=== PATIENT | male | born 1950 | race Caucasian/White ===

== ENCOUNTER 2025-06-21 08:33 | Outpatient (AMB) | payer OTHER, SELFPAY ==
--- NOTE | 2025-06-21 08:43 | A.OFFPC_ITS ---
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 Intake Note: patient here for new patient visit Dive Supervisor Required: No Allergies No Known Allergies Allergy (Verified 06/21/25 09:06) Tobacco use date assessed: 06/21/25 Fall risk assessment: No Falls in past year Last assessed Fall Risk: 06/21/25 Dental Screening Dental Screen Date: 06/21/25 Did you have a dental visit in the last 12 months?: Yes Did you have a dental problem in the last 6 months where you did not have access to dental care?: No Was dental information given to patient?: Patient has dentist HPI HPI Comments History of Present Illness Details 74-year-old male presents to establish c are. He admits to taking his medications as prescribed without adverse reactions. Reports lot of anxiety since he had a heart attack in 2019. He worries about a lot of things including in medical condition. He was on Lorazepam 0.5mg daily as needed for anxiety a few years ago. Prior PCP? - Dr. Paulo Griffith Last office visit/CPE/labs - 2 years ago Acute issue(s) - None Past Medical History - Hypertension, hyperlipidemia, low back pain, acid reflux, inverted papilloma/benign tumor of sinus cavity, myopia and hyperopia (wears glasses) anxiety, arthritis multiple joints Surgical History - Coronary artery stent 2018 - Surgical repair inverted papilloma/stephany ign tumor of sinus cavity Family History - Dad: HTN, cardiovascular disease Social History - Nonsmoker. Does not vape. Drinks 2 sma ll glasses of wine twice weekly. Denies recreational drug use - Has been making healthy dietary choice s. Walks routinely. Generally sleep well Health maintenance - Last eye exam was a year ago with Dr. Retana [facility]. He has an eye exam scheduled in 07/15/2025 - Last dental visit was 4 moths ago - Last Tdap 2 years ago. Record not mary ilable - He has never been vaccinated for shing les and pneumonia. Instructed on the importance of the vaccines and encouraged to get vaccinated for both a the local pharamcy - Has not been vaccinated for the flu ; receives vaccination today - Last colonoscopy was 21 years ago: Nor mal. Declines colonoscopy at this time. Cologuard ordered - Has never had a dexa scan; declines DE XA scan at this time Specialists - Cardiology at [facility] - [facility] - Neuro surgery and ENT in [facility] Medical History (Updated 06/21/25 @ 09:52 by Mindy Murray CNP) Anxiety Acid reflux Low back pain Arthritis Heart disease High cholesterol High blood pressure Inverted papilloma Surgical History (Updated 06/21/25 @ 09:02 by Cinthya Cagle MA) History of heart artery stent Family History (Updated 06/21/25 @ 09:04 by Cinthya Cagle MA) Father High blood pressure Cardiovascular disease Social History (Updated 06/21/25 @ 08:55 by Cinthya Cagle MA) Housing: House Patient Tobacco Use Status: Never used Tobacco e-Cigarette/Vaping Use: Never Used Second Hand Smoke Exposure: No service: No Current occupational status: employed Current occupation: [employer] Current occupational exposures/hazards: No Cognitive needs: No Hearing needs: No Vision needs: Yes Questionnaire PHQ-9 Over the last 2 weeks, how often have you been bothered by any of the following problems? 1. Little interest or pleasure in doing things: several days 2. Feeling down, depressed, or hopeless: not at all 3. Trouble falling or staying asleep, or sleeping too much: not at all 4. Feeling tired or having little energy: several days 5. Poor appetite or overeating: not at all 6. Feeling bad about yourself - or that you are a failure or have let yourself or your family down: not at all 7. Trouble concentrating on things, such as reading the newspaper or watching television: not at all 8. Moving or speaking so slowly that other people could have noticed. Or the opposite - being so fidgety or restless that you have been moving around a lot more than usual: not at all 9. Thoughts that you would be better off or of hurting yourself in some way: not at all Total score: 2 Depression Screening Interpretation: Negative Depression Screening Done: Yes 14507 - PHQ-9 Billing: Yes Source: Developed by Drs. Erasmo Spann, Olga Ramirez, Seun De La Paz and colleagues, with an educational don from [employer]. Thrive Questionnaire Date Thrive assessed: 06/21/25 I am a: Patient What is your living situation today?: I have a steady place to live Within the past 12 months, did the food you bought not last and you didn't have the money to get more?: Never true Within the past 12 months, did you worry whether your food would run out before you got money to buy more?: Never true Do you have trouble paying for medicines?: No Do you have trouble getting transportation to medical appointments?: No Do you have trouble paying your heating and electricity bill?: No Do you have trouble taking care of your child, family member or friend?: No Do you have trouble with day-to-day activities such as bathing, preparing meals, shopping, managing finances, etc.?: No Are you currently unemployed and looking for a job?: No Are you interested in more education?: No Please select the resources that you would like help with: None Currently or been in a relationship where the following occur: No concerns reported THRIVE Score: 0 AUDIT C Alcohol Use Questionnaire (AUDIT-C) 1. How often do you have a drink containing alcohol?: 2-4 times a month 2. How many drinks containing alcohol do you have on a typical day when you are drinking?: 1 or 2 3. How often do you have six or more drinks on one occasion?: Never Total Score: 2 Score Reviewed/Action Taken: Yes PRERNA-7 AMB Questionnaire PRERNA-7 Date PRERNA - 7 assessed: 06/21/25 Feeling nervous, anxious, or on edge: 3 = Nearly every day Not being able to stop or control worryin = Nearly every day Worrying too much about different things: 3 = Nearly every day Trouble relaxin = More than half the days Being so restless that it is hard to sit still: 0 = Not at all Becoming easily annoyed or irritable: 0 = Not at all Feeling afraid as if something awful might happen: 2 = More than half the days Total PRERNA-7 score (0-4 normal; 5-9 mild; 10-14 moderate; 15-21 severe): 13 Source: Developed by Drs. Erasmo Spann, Olga Ramirze, Seun De La Paz and colleagues, with an educational don from [employer]. PRERNA-7 Assessment Billing PRERNA-7 Assessment Tool: PRERNA-7 Assessment 34270 Review of Systems Const Details: Denies chills, Denies fatigue, Denies fever(s), Denies headache(s) and Denies weakness HEENT Denies change in vision, Denies dizziness, Denies headache(s), Denies hearing loss, Denies nasal congestion, Denies sinus pain, Denies sinus pressure and Denies sore throat Card Denies chest pain, Denies lightheadedness, Denies dyspnea and Denies other (palpitations) Resp Denies cough, Denies dyspnea and Denies wheezing GI Denies abdominal pain, Denies melena, Denies hematochezia, Denies change in bowel habits, Denies dyspepsia and Denies nausea Denies hematuria and Denies dysuria Musc Denies abnormal gait, Denies myalgias, Denies arthralgias, Denies numbness and Denies tingling Skin/Breast Denies rash, Denies unusual bruising and Denies wounds Neuro Denies abnormal gait, Denies dizziness, Denies headache(s), Denies memory loss, Denies numbness, Denies Sensory deficit (Neuro), Denies tingling and Denies weakness Psych Reports anxiety, Denies depression and Denies memory loss Endo Denies cold intolerance, Denies fatigue, Denies heat intolerance, Denies polydipsia and Denies polyuria Fausto/Lymph Denies easy bleeding and Denies easy bruising Aller/Immun Denies wheezing Physical exam (Primary Care) Vital Signs: Last Vital Signs Temp 97.8 F 06/21/25 08:55 Pulse 64 06/21/25 09:21 Resp 16 06/21/25 08:55 BP 158/70 H 06/21/25 09:21 Pulse Ox 98 06/21/25 08:55 Oxygen Delivery Method Room Air 06/21/25 08:55 BMI result Body Mass Index 27.3 Tobacco/Smoking Status: Tobacco use Status Tobacco use date assessed 06/21/25 06/21/25 08:55 Patient Tobacco Use Status Never used Tobacco 06/21/25 08:55 e-Cigarette/Vaping Use Never Used 06/21/25 08:55 PHQ-9: PHQ-9 Score PHQ-9: Total score 2 06/21/25 09:18 Depression Screening Interpretation: Negative Thrive Assessment: Date of Thrive Assessment Date Thrive assessed 06/21/25 06/21/25 08:45 Currently or been in a relationship where the following occur: No concerns reported Const Other: General: no acute distress, well developed, alert and awake Nutritional Appearance: well nourished Orientation/consciousness: patient oriented x3 [facility] Head: Yes normocephalic and Yes atraumatic Ears: hearing grossly normal bilaterally and TM's normal bilaterally General nose exam: Normal external nose present and Normal nares present Mouth: Normal oral and palatal mucosa present and moist mucous membranes Teeth and gingiva: dentition normal Throat: Yes oropharynx normal Eyes Pupils: Equal, round and reactive pupils present and Pupil accommodation reflex normal EOM: EOMs intact bilaterally Neck Neck: Yes normal visual inspection, Yes no lymphadenopathy and Yes trachea midline Thyroid: Thyroid normal Carotids: no bruits Lymphatic: no lymphadenopathy noted Chest Chest palpation & inspection: normal inspection of the chest Resp Effort & Inspection: normal respiratory effort Auscultation: clear to auscultation bilaterally Cardio Rate: regular rate Rhythm: regular rhythm Heart sounds: S1 normal heart sound present, S2 normal heart sound present, no gallops, no murmurs and no rubs Bruits: no abdominal aortic bruits and no carotid bruits GI Palpation (GI): No Abdominal aortic bruit present, Soft to palpation, nontender, No hepatosplenomegaly present and No Rebound tenderness present Auscultation: normal bowel sounds General: Yes no CVA tenderness Back/Spine/Pelvis Back: no CVA tenderness Cervical Spine: cervical ROM normal and No Cervical spine tenderness Thoracic/Lumbar Spine: thoraco-lumbar ROM normal, No pain with thoraco-lumbar ROM, No thoracic spinal tenderness and No lumbar spinal tenderness Skin General: warm and dry. Normal skin color. Normal skin turgor Lesions: no lesions Rashes: no rashes Trauma: no lacerations or abrasions Wounds: no wounds Nails: normal Neuro General: patient oriented x3, gait normal and CN's II-XI intact bilaterally Cranial nerves: Yes Equal, round and reactive pupils present Cognition (Neuro): normal cognition Gait exam (Neuro): Normal gait present Motor exam (neuro): 5/5 motor strength present throughout Sensory Exam: No Sensory deficit (Neuro) Deep tendon reflexes (DTR's): Right patellar reflex intensity grade: 2+ and Left patellar reflex intensity grade: 2+ Extrem General: Yes normal to inspection, No edema and No calf tenderness Psych Appearance: grossly normal Affect: normal affect Attitude: cooperative Thought process: Normal thought process present Office Procedures Flu Questionnaire Does the patient have a severe egg allergy?: No Does the patient have severe life threatening allergies?: No Does the patient have a fever or illness today?: No Has the patient ever had Guillain-Riley Syndrome?: No Has the patient ever had any past reaction to a flu shot?: No Immunizations Fluarix [id number] (PF) 45 mcg (15 mcg x 3)/0.5 mL IM syringe Performing Provider: Mindy Murray CNP Performing Location: [facility] [place] [facility] Administered by: Velvet Stoll RN on 06/21/25 09:48 Dose Route Admin Location Dispensed Lot Number Expiration Date [facility] Associate Consulting Engineer 0.5 mL IM Left Deltoid 0.5 mL [id number] 03/25/26 [id number] [employer] VIS Given Date VIS Provided VIS Publication Date 06/21/25 Single Vaccine 24 Eligibility Eligibility Date Funding Source [place] [facility] [place] 06/21/25 Private Coding Level of Care Code New Pt Level 4 (47195) New Pt Prev Care >65yr (65996) Diagnoses Normal physical examination, routine Z00.00 High blood pressure I10 Anxiety F41.9 Colon cancer screening Z12.11 Laboratory tests ordered as part of a complete physical exam (CPE) Z00.00 Additional Codes PHQ-9 - 91599 - PHQ-9 Billing: Yes ([id number]) PRERNA-7 Assessment Billing - PRERNA-7 Assessment Tool: PRERNA-7 Assessment 19516 ([id number]) Assessment & Plan Assessment & Plan (1) Normal physical examination, routine: Code(s): Z00.00 - Encounter for general adult medical examination without abnormal findings Category: Medical Plan: No significant functional limitations noted. Continue current treatment regimen. Follow-up with specialists as planned. Perform lab working follow-up in 2 weeks for hypertension, anxiety, and labs review. Return sooner with symptoms or concerns. Verbalized understanding and agreed with plan. (2) High blood pressure: Code(s): I10 - Essential (primary) hypertension Category: Medical Plan: Resting blood pressure is 158/70, above goal of less than 130/80, heart rate 64. His blood pressure is likely elevated due to anxiety. He is on amlodipine 10 mg daily, losartan 50 mg daily, and metoprolol succinate 25 mg twice daily which I encouraged to continue. Take clonidine as prescribed to target anxiety. Low-sodium diet encouraged. Follow-up in 2 weeks. Verbalized understanding and agreed with the plan. (3) Anxiety: Code(s): F41.9 - Anxiety disorder, unspecified Category: Medical Plan: Reports lot of anxiety since he had a heart attack in 2019. He worries about a lot of things including in medical condition. He was on Lorazepam 0.5mg daily as needed for anxiety a few years ago. PRERNA-7 score revealed moderate anxiety. PHQ-9 score is normal. Clonidine 0.1 mg twice daily ordered; advised to take as prescribed. Instructed on the risks, benefits, and potential adverse reactions of the medication. Follow-up in 2 weeks. Verbalized understanding and agreed with the plan. (4) Colon cancer screening: Code(s): Z12.11 - Encounter for screening for malignant neoplasm of colon Category: Medical Plan: Last colonoscopy was 21 years ago: Normal. Declines colonoscopy at this time. Cologuard ordered. (5) Laboratory tests ordered as part of a complete physical exam (CPE): Code(s): Z00.00 - Encounter for general adult medical examination without abnormal findings Category: Medical Plan: Fasting labs ordered as part of a complete physical exam. Advised to fast for at least 10 hours before getting labs drawn. May drink water Verbalized understanding and agreed with treatment plan. Orders: Orders Complete Blood Count Auto Diff Today Z00.00 - Encounter for general adult medical examination without abnormal findings Comprehensive Moro. Panel Fast Today Z00.00 - Encounter for general adult medical examination without abnormal findings PSA, Ultra Sensitive Today Z00.00 - Encounter for general adult medical examination without abnormal findings UA CC w/rflx Micro + Cult Today Z00.00 - Encounter for general adult medical examination without abnormal findings Vitamin D 25-OH Total Today Z00.00 - Encounter for general adult medical examination without abnormal findings Lipid Panel Today Z00.00 - Encounter for general adult medical examination without abnormal findings Microalbumin, Random (w Creat) Today Z00.00 - Encounter for general adult medical examination without abnormal findings TSH reflex Free T4 Today Z00.00 - Encounter for general adult medical examination without abnormal findings Influenza [id number] Immunization Today Z23 - Encounter for immunization Referrals Cologuard Test Z12.11 - Encounter for screening for malignant neoplasm of colon Medications: New clonidine HCl 0.1 mg PO BID 60 tabs 1RF 30 days
--- OUTSIDE RECORDS SUMMARY | 2025-06-21 08:54 | XMS_ITS | Clinical Summary ---
Author Organization [facility] Address [address] [place] [phone] Phone Care Team Providers Care Photography Instructor Name Role Phone Pcp, Unknown Primary Care Provider Unavailabl e Medications clopidogrel (PLAVIX) 75 mg tablet Take 1 tablet (75 mg total) by mouth daily. 90 tablet 3 01/26/2021 Active apixaban (ELIQUIS) 5 mg tablet Take 1 tablet (5 mg total) by mouth 2 (two) times a day. 180 tablet 3 01/26/2021 Active Social History Tobacco Use Types Packs/Day Years Used Date Smoking Tobacco: Never Assessed Education Answer Date Recorded Are you interested in more education? Not on kathy e 01/22/2023 Are you concerned about learning? Not on file 01/22/2023 No 01/22/2023 No 01/22/2023 Digital Access Answer Date Recorded No 02/19/2023 No 02/19/2023 No 02/19/2023 Reliable internet access at home? Not on file 02/19/2023 Device with a working camera? Not on file Sex and Gender Information Value Date Recorded Sex Assigned at Not on file Legal Sex Male 12:25 PM EDT Gender Identity Not on file Sexual Orientation Not on file Last Filed Vital Signs Vital Sign Reading Time Taken Comments Blood Pressure 140/68 01/26/2021 1:36 PM EDT Pulse - - Temperature - - Respiratory Rate - - Oxygen Saturation 97% 01/26/2021 1:00 PM EDT Inhaled Oxygen Concentration - - Weight - - Height - - Body Mass Index - - Plan of Treatment Health Maintenance Due Date Last Done Comments Adult Td,Tdap Booster 1948 CREATININE LEVEL 1948 LIPID PANEL 1948 DEPRESSION SCREENING 1960 SMOKING Hx and SMOKELESS TOBACCO SCREENING 1961 HEPATITIS C SCREENING 1966 ZOSTER VACCINES (1 of 2) 1998 PNEUMOCOCCAL VACCINES (50+ years) (2 of 2 - PPSV23) 04/05/2018 04/05/2017 RSV VACCINE (1 - 1-dose 75+ series) 2023 INFLUENZA VACCINE (#1) 2025 0, 07/24/2018, 07/21/2010 COVID-19 VACCINE (3 - 2024-2 6 season) 2025 12/21/2020, 11/30/2020 HEPATITIS A VACCINES Aged Out No long er eligible based on patient's age to complete this topic HIB VACCINES Aged Out No longer eligi ble based on patient's age to complete this topic MENINGOCOCCAL VACCINES (ACWY) Aged Out No longer eligible based on patient's age to complete this topic MENINGOCOCCAL VACCINES (B) Aged Out N o longer eligible based on patient's age to complete this topic Medical Devices Not on file Insurance MEDICARE PART A & B [employer] ENHANCE SUPPLEMENT MEDICARE PART A & B [employer]ANCE SUPPLEMENT MEDICARE PART A & B [facility] MEDIC[facility] ENHANCE SUPPLEMENT MEDICARE PART A & B [facility] MEDICARE ENHANCE SUPPLEMENT MEDICARE PART A & B [facility] MEDICARE ENHANCE SUPPLEMENT MEDICARE PART A & B [facility] MEDICARE ENHANCE SUPPLEMENT MEDICARE PART A & B [facility] MEDICARE ENHANCE SUPPLEMENT MEDICARE PART A & B [facility] MEDICARE ENHANCE SUPPLEMENT MEDICARE PART A & B [employer] ENHANCE SUPPLEMENT Care Teams Photography Instructor Relationship Specialty Start Date End Date Pcp, Unknown PCP - General 01/21/21 Additional Source Comments The information contained in this document represents components of the legal health record. It is not the complete legal health record.[facility]
[2025-06-21 08:55] VITALS: BP 174/79; PULSE 61; RESP 16; TEMP 36.6; O2SAT 98; BMI 27.3
--- OUTSIDE RECORDS SUMMARY | 2025-06-21 08:55 | XMS_ITS | Continuity of Care Document ---
Author Organization [facility] Address [address] [place] [address] Phone [phone] Care Team Providers Care Harvester Operator Name Role Phone Paulo Griffith M.D. Care Team Information Rece iver [phone] Problems Active Problems Provider Date Essential hypertension Paulo Grififth M.D. Ons et: 06/09/2022 Gastroesophageal reflux disease Paulo Griffith M.D. Onset: 06/09/2022 Hypercholesterolemia Paulo Griffith M.D. Onset : 06/09/2022 Hyperlipidemia Paulo Griffith M.D. Onset: Myocardial infarction Paulo Griffith M.D. Onse t: 06/09/2022 Asymptomatic coronary heart disease Paulo espinoza M.D. Onset: 06/09/2022 Polyp of nasal sinus Paulo Griffith M.D. Onset : 06/09/2022 Social History Type Date Description Comments Sex Male Sex Unknown Tobacco Use Start: Unknown Never Smoked Cigarettes ETOH Use Occasionally consumes wine Allergies and adverse reactions Description No Known Drug Allergies Medications Active Medications SIG Qnty Indications Ordering Provider Date Lorazepam0.5mg Tablets 1 tabs by mouth twice a day as needed 60tabs Paulo Griffith M.D. 08/23/[address] Rajesh Griffith M.D. 06/09/2022 Losartan Ebzugupiw95my Tablets 1 by mouth every day Unknown Amlodipine Tvanoxyl88br Tablets 1 by mouth every day 90tabs Unknown Metoprolol Ngcpqfkc87yu Tablets 1 tab by mouth twice a day Unknown Qmgielm03zv Tablets 1 by mouth every day Unknown Rosuvastatin Mggvadc08fh Tablets 1 by mouth every day 90tabs Unknown Tqjracsucf14xl Capsules DR Take 1 Capsule By Mouth Daily 90caps Paulo Griffith M.D. Lorazepam0.5mg Tablets Take 1 Tablet By Mouth bid as Needed For Anxiety 60tabs Paulo Griffith M.D. Ttxlszssb99lb Tablets 1 by mouth every day 30tabs Michelle Bowser MD Vital Signs Date Vital Result Comment 08/23/2023 9:53am BP Systolic 130 mmHg BP Diastolic 60 mmHg Heart Rate 67 /min Height 68 inches 5'8 Weight 185.12 lb BMI (Body Mass Index) 28.1 kg/m2 Results Test Acquired Date Facility Test Result H/L Range Note Comprehensive Metabolic Panl 07/06/2023 [facility] Reference Lab Glucose 99 mg/dL (70-99) BUN 21 mg/dL (8-23) Creatinine 0.9 mg/dL (0.7-1.2 ) Sodium 143 mmol/L (133-145 ) Potassium 4.2 mmol/L (3.6-5.2 ) Chloride 107 mmol/L (98-107) Bicarbonate 26 mmol/L (22-29) Anion Gap 10 (4-17) Albumin 4.2 GM/DL (3.4-4.8 ) Calcium 9.2 mg/dL (8.6-10. 5) Bilirubin,Total 0.5 mg/dL (0-1.2 ) Total Protein 6.4 GM/DL (6.2-8.2 ) Ag Ratio 1.9 Ast 22 U/L (0-40) Alk Phos 64 U/L (40-129) Alt 17 U/L (0-41) Estimated GFR Creatinine 85 ML/MIN/1.73 M2 1 Urinalysis Complete 07/06/2023 [facility] Reference Lab Appear/Color LIGHT YELLOW 2 SP. [place] 1.021 (1.002-1 .030) Urine PH 6.0 (5.0-8.0 ) Urine Albumin NEGATIVE (Neg) Urine Glucose NEGATIVE (Neg) Urine Ketones NEGATIVE (Neg) Urine Bilirubin NEGATIVE (Neg) Urine Hemoglobin NEGATIVE (Neg) Urine Nitrite NEGATIVE (Neg) Urine Leukocyte NEGATIVE (Neg) Urobilinogen NORMAL mg/dL (Norm) Urine WBCs <1 /HPF (0-5) Urine RBCs 1 /HPF (0-3) Mucus SLIGHT /LPF Complete Abc With Diff 07/06/2023 [facility] Reference Lab WBC 8.0 K/MM3 (4.0-11. 0) RBC 4.59 M/MM3 Low (4.70-6. 10) HGB 14.1 GM/DL (13.7-17 .1) HCT 44.1 % (40.5-50 .0) MCV 96.1 FL High (80.0-94 .0) MCH 30.7 pg (27.0-34 .0) MCHC 32.0 g/dL Low (33.0-37 .0) PLT 178 K/MM3 (150-460 ) RDW-SD 43.8 FL (<47.0) MPV 11.1 FL (9.4-12. 4) Automated NRBC 0.0 #/100WBC'S Abs. NRBC 0.0 K/MM3 Neut # 5.3 K/MM3 (1.3-7.0 ) Lymph # 1.5 K/MM3 (0.8-3.1 ) [place]# 0.8 K/MM3 (0.4-1.3 ) Eo # 0.5 K/MM3 High (0.0-0.4 ) Baso # 0.1 K/MM3 (0.0-0.1 ) Abs. Imm Gran 0.0 K/MM3 Neut 65.6 % (44-76) Lymph 18.1 % (15-43) Monocyte 9.9 % (4.5-10. 5) Eo 5.6 % (0-6) Baso 0.6 % (0-2) Imm Gran 0.2 % Complete Abc With Diff 06/04/2022 [facility] Reference Lab WBC 10.0 K/MM3 (4.0-11. 0) RBC 4.52 M/MM3 Low (4.70-6. 10) HGB 14.4 GM/DL (13.7-17 .1) HCT 43.4 % (40.5-50 .0) MCV 96.0 FL High (80.0-94 .0) MCH 31.9 pg (27.0-34 .0) MCHC 33.2 g/dL (33.0-37 .0) PLT 162 K/MM3 (150-460 ) RDW-SD 43.7 FL (<47.0) MPV 11.2 FL (9.4-12. 4) Automated NRBC 0.0 #/100WBC'S Abs. NRBC 0.0 K/MM3 Neut # 6.9 K/MM3 (1.3-7.0 ) Lymph # 1.7 K/MM3 (0.8-3.1 ) [place]# 0.8 K/MM3 (0.4-1.3 ) Eo # 0.4 K/MM3 (0.0-0.4 ) Baso # 0.1 K/MM3 (0.0-0.1 ) Abs. Imm Gran 0.0 K/MM3 Neut 69.7 % (44-76) Lymph 16.7 % (15-43) Monocyte 8.4 % (4.5-10. 5) Eo 4.2 % (0-6) Baso 0.7 % (0-2) Imm Gran 0.3 % Urine Dipstick 06/04/2022 [facility] Reference Lab Appear/Color LIGHT YELLOW 3 SP. [place] 1.010 (1.002-1 .030) Urine PH 6.0 (5.0-8.0 ) Urine Albumin NEGATIVE (Neg) Urine Glucose NEGATIVE (Neg) Urine Ketones NEGATIVE (Neg) Urobilinogen NORMAL mg/dL (Norm) Urine Bilirubin NEGATIVE (Neg) Urine Hemoglobin NEGATIVE (Neg) Urine Nitrite NEGATIVE (Neg) Urine Leukocyte NEGATIVE (Neg) Clarity CLEAR (Clear) Comprehensive Metabolic Panl 06/04/2022 [facility] Reference Lab Glucose 86 mg/dL (70-99) BUN 17 mg/dL (8-23) Creatinine 0.9 mg/dL (0.7-1.2 ) Sodium 140 mmol/L (133-145 ) Potassium 4.2 mmol/L (3.6-5.2 ) Chloride 105 mmol/L (98-107) Bicarbonate 26 mmol/L (22-29) Anion Gap 9 (4-17) Albumin 4.6 GM/DL (3.4-4.8 ) Calcium 9.3 mg/dL (8.6-10. 5) Bilirubin,Total 0.7 mg/dL (0-1.2 ) Total Protein 6.8 GM/DL (6.2-8.2 ) Ag Ratio 2.1 Ast 28 U/L (0-40) Alk Phos 69 U/L (40-129) Alt 23 U/L (0-41) Estimated GFR Creatinine 87 ML/MIN/1.73 M2 4 1 Creatinine based est imated glomerular filtration (eGFR) in adults is calculated using the [employer] recommended 202 CKD-EPI equation. Estimates GFR from serum creatinine, age and sex. 2 CLEAR 3 CLEAR 4 Creatinine based est imated glomerular filtration (eGFR) in adults is calculated using the National [employer] recommended 202 CKD-EPI equation. Estimates GFR from serum creatinine, age and sex. Medical Devices Description No Information Available Encounters Type Date Location Provider Dx Diagnosis Office Visit 08/23/2023 10:00a Main Office Paulo Griffith M.D. J33.8 Other polyp of sinus I10 Essential (primary) hypertension I25.89 Other forms of chron ic ischemic heart disease E78.00 Pure hypercholestero lemia, unspecified M25.569 Pain in unspecified knee F41.9 Anxiety disorder, un specified Assessments Date Code Description Provider 08/23/2023 J33.8 Polyp of nasal sinus Paulo moctezuma M.D. 08/23/2023 I10 Essential hypertension Paulo Griffith M.D. 08/23/2023 I25.89 Asymptomatic coronary heart disease Paulo Griffith M.D. 08/23/2023 E78.00 Pure hypercholesterolemia, u nspecified Paulo Griffith M.D. 08/23/2023 M25.569 Pain in unspecified knee Naseem Griffith M.D. 08/23/2023 F41.9 Anxiety disorder, unspecifie d Paulo Griffith M.D. Plan of Treatment 08/23/2023 - Paulo Griffith M.D.* J33.8 Polyp of nasal sinus * I10 Essential hypertension * I25.89 Asymptomatic coronary heart disease * E78.00 Pure hypercholesterolemia, unspecified * M25.569 Pain in unspecified knee * F41.9 Anxiety disorder, unspecified * Functional Status Description No Information Available Mental Status Description No Information Available Referrals Description No Information Available
[2025-06-21 09:21] VITALS: BP 158/70; PULSE 64
== END 2025-06-21 09:48 | disposition home or self-care (01) ==
LOC: HO.HMCFM 08:34
PROVIDERS: PCP Nurse Practitioner Family; Visit Provider Nurse Practitioner Family
DX: Z00.00 Encounter for general adult medical examination without abnormal findings (principal); I10 Essential (primary) hypertension; F41.9 Anxiety disorder, unspecified; Z12.11 Encounter for screening for malignant neoplasm of colon; Z23 Encounter for immunization

== ENCOUNTER → 2025-06-21 08:33 | Outpatient (BNVA) | payer OTHER, SELFPAY | PROVIDERS: PCP Nurse Practitioner Family; Visit Provider Nurse Practitioner Family | DX: Z00.00 Encounter for general adult medical examination without abnormal findings (principal); I10 Essential (primary) hypertension; F41.9 Anxiety disorder, unspecified; Z23 Encounter for immunization | CPT/HCPCS: 90471; 90656; 96127 ==

== ENCOUNTER 2025-07-01 09:17 | Outpatient (REF) | payer OTHER, SELFPAY ==
--- OUTSIDE RECORDS SUMMARY | 2025-07-01 10:29 | XMS_ITS | Clinical Summary ---
Author Organization [facility] Address [address] [place] [id number] Phone Care Team Providers Care Fast Foods Worker Name Role Phone Pcp, Unknown Primary Care [...] ENHANCE SUPPLEMENT MEDICARE PART A & B [facility] MEDICARE ENHANCE SUPPLEMENT MEDICARE PART A & B [facility] MEDICARE ENHANCE SUPPLEMENT MEDICARE PART A & B [facility] MEDICARE ENHANCE SUPPLEMENT MEDICARE PART A & B [facility] MEDICARE ENHANCE SUPP[place] [facility] [place]: [address] [place] [address] MEDICARE PART A & B [facility] MEDICARE ENHANCE SUPPLEMENT MEDICARE PART A & B [facility] MEDICARE ENHANCE SUPPLEMENT MEDICARE PART A & B [facility] MEDICARE [place]HANCE SUPP[place] [facility] [place] Address: [address] [place] [address] Care Teams Fast Foods Worker Relationship Specialty Start Date End Date Pcp, Unknown PCP - General 01/21/21 Additional Source Comments The information contained in this document represents components of the legal health record. It is not the complete legal health record.[facility]
--- OUTSIDE RECORDS SUMMARY | 2025-07-01 10:29 | XMS_ITS | Continuity of Care Document ---
Author Organization [facility] Address 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 Care Team Information Rece iver [phone] Problems Active Problems Provider Date Essential hypertension Paulo Griffith M.D. Ons et: 06/09/2022 Gastroesophageal reflux disease [...] as needed 60tabs Paulo Griffith M.D. 08/23/[address] Rajesh Griffith M.D. 06/09/2022 Losartan Ijedyxjdf35ij Tablets 1 by mouth every day Unknown Amlodipine Zgohybaz86rq Tablets 1 by mouth every day 90tabs Unknown Metoprolol Acssfbup39ou Tablets 1 tab by mouth twice a day Unknown Qcffcof73be Tablets 1 by mouth every day Unknown Rosuvastatin Uzpyhqm89po Tablets 1 by mouth every day 90tabs Unknown Fhwqkkfjcp93yr Capsules DR Take 1 Capsule By Mouth Daily 90caps Paulo Griffith M.D. Lorazepam0.5mg Tablets Take 1 Tablet By Mouth bid as Needed For Anxiety 60tabs Paulo Griffith M.D. Nxrepyizp74tk Tablets 1 by mouth every day 30tabs Michelle Bowser MD Vital Signs Date Vital Result Comment 08/23/2023 9:53am BP Systolic 130 mmHg BP Diastolic 60 mmHg Heart Rate 67 /min Height 68 inches 5'8 Weight 185.12 lb BMI (Body Mass Index) 28.1 kg/m2 Results Test Acquired Date Facility Test Result H/L Range Note Comprehensive Metabolic Panl 07/06/2023 [facility] Reference Lab Glucose 99 mg/dL (70-99) [...] 85 ML/MIN/1.73 M2 1 Urinalysis Complete 07/06/2023 [facility] Reference Lab Appear/Color LIGHT YELLOW 2 SP. [place] 1.021 (1.002-1 .030) Urine PH 6.0 (5.0-8.0 ) Urine Albumin NEGATIVE (Neg) Urine Glucose NEGATIVE (Neg) Urine Ketones NEGATIVE (Neg) Urine Bilirubin NEGATIVE (Neg) Urine Hemoglobin NEGATIVE (Neg) Urine Nitrite NEGATIVE (Neg) Urine Leukocyte NEGATIVE (Neg) Urobilinogen NORMAL mg/dL (Norm) Urine WBCs <1 /HPF (0-5) Urine RBCs 1 /HPF (0-3) Mucus SLIGHT /LPF Complete Abc With Diff 07/06/2023 [facility] Reference Lab WBC 8.0 K/MM3 (4.0-11. [...] ) Lymph # 1.5 K/MM3 (0.8-3.1 ) [place]# 0.8 K/MM3 (0.4-1.3 ) Eo # 0.5 K/MM3 High (0.0-0.4 ) Baso # 0.1 K/MM3 (0.0-0.1 ) Abs. Imm Gran 0.0 K/MM3 Neut 65.6 % (44-76) Lymph 18.1 % (15-43) Monocyte 9.9 % (4.5-10. 5) Eo 5.6 % (0-6) Baso 0.6 % (0-2) Imm Gran 0.2 % Complete Abc With Diff 06/04/2022 [facility] Reference Lab WBC 10.0 K/MM3 (4.0-11. [...] ) Lymph # 1.7 K/MM3 (0.8-3.1 ) [place]# 0.8 K/MM3 (0.4-1.3 ) Eo # 0.4 K/MM3 (0.0-0.4 ) Baso # 0.1 K/MM3 (0.0-0.1 ) Abs. Imm Gran 0.0 K/MM3 Neut 69.7 % (44-76) Lymph 16.7 % (15-43) Monocyte 8.4 % (4.5-10. 5) Eo 4.2 % (0-6) Baso 0.7 % (0-2) Imm Gran 0.3 % Urine Dipstick 06/04/2022 [facility] Reference Lab Appear/Color LIGHT YELLOW 3 SP. [place] 1.010 (1.002-1 .030) Urine PH 6.0 (5.0-8.0 ) Urine Albumin NEGATIVE (Neg) Urine Glucose NEGATIVE (Neg) Urine Ketones NEGATIVE (Neg) Urobilinogen NORMAL mg/dL (Norm) Urine Bilirubin NEGATIVE (Neg) Urine Hemoglobin NEGATIVE (Neg) Urine Nitrite NEGATIVE (Neg) Urine Leukocyte NEGATIVE (Neg) Clarity CLEAR (Clear) Comprehensive Metabolic Panl 06/04/2022 [facility] Reference Lab Glucose 86 mg/dL (70-99) [...]
[2025-07-01 11:36] LABS: MANUAL DIFF FLAG NO
[2025-07-01 11:40] LABS: Hematocrit 45.2 % (42.0-52.0); Hemoglobin 15.6 g/dl (14.0-18.0); Imm Gran Abs Auto 0.03 X10*3/uL (0.00-0.03); Imm Gran Pct Auto 0.3 % (0.0-0.4); Lymphocytes Absolute Auto 1.3 X10*3/uL (1.2-4.9); Mean Corpuscular HGB Conc 34.5 g/dl (31.0-36.0); Mean Corpuscular Hemoglobin 32.0 pg (27.0-33.0); Mean Corpuscular Volume 92.6 fL (80.0-98.0); NRBC Abs Auto 0.000 X10*3/uL (0.0-0.012); NRBC Pct Auto 0.0 /100WBC (0.0-0.2); Platelet Count 232 X10*3/uL (160-400); Red Blood Count 4.88 X10*6/uL (4.60-5.80); White Blood Count 9.6 X10*3/uL (4.8-10.8)
[2025-07-01 12:11] LABS: Alanine Aminotransferase 33 U/L (0-40); Albumin Level 4.3 g/dL (3.5-5.0); Alkaline Phosphatase 60 U/L (39-117); Anion Gap 9 (12-20); Aspartate Amino Transferase 33 U/L (5-37); Blood Urea Nitrogen 14 mg/dL (9-16); Calcium 9.3 mg/dL (8.4-10.2); Carbon Dioxide 28 mmol/L (22-29); Chloride 106 mmol/L (96-108); Cholesterol 110 mg/dL (<200); Estimated Glomerular Filt Rate > 60; HDL Cholesterol 48 mg/dL (>40); Potassium 4.0 mmol/L (3.3-5.1); Sodium 139 mmol/L (135-145); Total Protein 7.1 g/dL (6.5-8.0); Triglycerides 60 mg/dL (<150)
[2025-07-01 14:55] LABS: Appearance Urine Clear; Glucose Urine UA Negative (Negative); PH 6.5 (5.0-9.0); Specific Gravity - Urine 1.015 (1.005-1.025)
[2025-07-01 15:27] LABS: Microalbum/Creatinine Ratio Ur 14.1 ug/mg cr (<30)
[2025-07-04 21:34] LABS: PSA, Ultra Sensitive 1.15 ng/mL
== END 2025-07-01 09:18 | disposition home or self-care (01) ==
LOC: HO.WFDLDS 09:17
PROVIDERS: Visit Provider Nurse Practitioner Family
DX: Z00.00 Encounter for general adult medical examination without abnormal findings (principal); Z12.5 Encounter for screening for malignant neoplasm of prostate; Z13.6 Encounter for screening for cardiovascular disorders
CPT/HCPCS: 36415; 80053; 80061; 81003; 82043; 82306; 82570; 84153; 84443; 85025

== ENCOUNTER 2025-07-09 09:02 | Outpatient (AMB) | payer MEDICARE, OTHER, SELFPAY ==
--- NOTE | 2025-07-09 09:03 | MHC.PC.OV ---
Vital Signs 07/09/25 09:17 07/09/25 09:39 Height 5 ft 8 in Weight 175 lb BMI 26.6 BP 163/77 H 148/70 H Blood Pressure Location Rt brachial Rt brachial Position Sitting Respiration 16 Pulse 56 64 Pulse Source Pulse Oximeter Auscultation Temp 97.6 F Temp Source Oral Pulse Oximetry (%) 96 Oxygen Delivery Method Room Air Intake Visit Reasons: 2 wks HTN, anxiety, labs review Intake Note: patient here for 2 wks follow up on HTN, anxiety and labs Spool Hauler Required: No Allergies No Known Allergies Allergy (Verified 07/09/25 09:33) Medication List - Last Reconciled 07/09/25 by Mindy Murray CNP amlodipine 10 mg PO DAILY aspirin 81 mg PO DAILY clonidine HCl 0.1 mg PO BID 30 days ezetimibe-rosuvastatin 10-10 mg 1 tab PO DAILY losartan 50 mg PO DAILY metoprolol succinate ER 25 mg PO BID rivaroxaban 20 mg PO DAILY rosuvastatin 40 mg PO DAILY Tobacco use date assessed: 07/09/25 Fall risk assessment: No Falls in past year Last assessed Fall Risk: 07/09/25 Dental Screening Dental Screen Date: 07/09/25 Did you have a dental visit in the last 12 months?: Yes Did you have a dental problem in the last 6 months where you did not have access to dental care?: No Was dental information given to patient?: Patient has dentist HPI HPI Comments History of Present Illness Details 74-year-old male presents for hypertension, anxiety, and recent labs review follow-up. He admits to taking her medications as prescribed without adverse reactions. He took clonidine for a couple of days but felt dizzy and lightheaded and therefore stopped the medication. He was on Lorazepam 0.5mg PRN without adverse reactions. His anxiety has not improved since last visit; he notes that some days are worse than orders. He has upcoming procedures with his safety representative which is very anxious above. He is worried and nervious about his and his 's health. [facility] Medical History (Updated 07/09/25 @ 09:45 by Mindy Murray CNP) Afib Anxiety Acid reflux Low back pain Arthritis Heart disease High cholesterol High blood pressure Inverted papilloma Surgical History (Updated 06/21/25 @ 09:02 by Cinthya Cagle MA) History of heart artery stent Family History (Updated 06/21/25 @ 09:04 by Cinthya Cagle MA) Father High blood pressure Cardiovascular disease Social History Housing: House Patient Tobacco Use Status: Never used Tobacco e-Cigarette/Vaping Use: Never Used Second Hand Smoke Exposure: No service: No Current occupational status: employed 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 1. Little interest or pleasure in doing things: several days 2. Feeling down, depressed, or hopeless: not at all 3. Trouble falling or staying asleep, or sleeping too much: not at all 4. Feeling tired or having little energy: several days 5. Poor appetite or overeating: not at all 6. Feeling bad about yourself - or that you are a failure or have let yourself or your family down: not at all 7. Trouble concentrating on things, such as reading the newspaper or watching television: not at all 8. Moving or speaking so slowly that other people could have noticed. Or the opposite - being so fidgety or restless that you have been moving around a lot more than usual: not at all 9. Thoughts that you would be better off or of hurting yourself in some way: not at all Total score: 2 Depression Screening Interpretation: Negative Depression Screening Done: Yes 68181 - PHQ-9 Billing: Yes Source: Developed by Drs. Erasmo Spann, Olga Ramirez, Seun De La Paz and colleagues, with an educational don from [email or web address]. Thrive Questionnaire Date Thrive assessed: 11/18/24 I am a: Patient What is your living situation today?: I have a steady place to live Within the past 12 months, did the food you bought not last and you didn't have the money to get more?: Never true Within the past 12 months, did you worry whether your food would run out before you got money to buy more?: Never true Do you have trouble paying for medicines?: No Do you have trouble getting transportation to medical appointments?: No Do you have trouble paying your heating and electricity bill?: No Do you have trouble taking care of your child, family member or friend?: No Do you have trouble with day-to-day activities such as bathing, preparing meals, shopping, managing finances, etc.?: No Are you currently unemployed and looking for a job?: No Are you interested in more education?: No Please select the resources that you would like help with: None Currently or been in a relationship where the following occur: No concerns reported THRIVE Score: 0 PRERNA-7 AMB Questionnaire PRERNA-7 Date PRERNA - 7 assessed: 07/09/25 Feeling nervous, anxious, or on edge: 1 = Several days Not being able to stop or control worryin = Several days Worrying too much about different things: 1 = Several days Trouble relaxin = Several days Being so restless that it is hard to sit still: 0 = Not at all Becoming easily annoyed or irritable: 0 = Not at all Feeling afraid as if something awful might happen: 1 = Several days Total PRERNA-7 score (0-4 normal; 5-9 mild; 10-14 moderate; 15-21 severe): 5 Source: Developed by Drs. Erasmo Spann, Olga Ramirez, Seun De La Paz and colleagues, with an educational don from [email or web address]. PRERNA-7 Assessment Billing PRERNA-7 Assessment Tool: PRERNA-7 Assessment 66345 Review of Systems Const Details: Const Denies chills, Denies fatigue, Denies fever(s), Denies headache(s) and Denies weakness ENT Denies dizziness and Denies headache(s) Card Denies chest pain, Denies lightheadedness, Denies dyspnea and Denies other (Palpitations) Resp Denies cough, Denies dyspnea, Denies wheezing and Denies other ( shortness of breath) GI Denies abdominal pain, Denies melena, Denies hematochezia, Denies change in bowel habits, Denies dyspepsia and Denies nausea Denies hematuria and Denies dysuria Musc Denies abnormal gait, Denies myalgias, Denies arthralgias, Denies numbness and Denies tingling Skin/Breast Denies rash, Denies unusual bruising and Denies wounds Neuro Denies abnormal gait, Denies dizziness, Denies headache(s), Denies memory loss, Denies numbness, Denies Sensory deficit (Neuro), Denies tingling and Denies weakness Psych Reports anxiety, Denies depression, Denies memory loss Endo Denies cold intolerance, Denies fatigue, Denies heat intolerance, Denies polydipsia and Denies polyuria Aller/Immun Denies wheezing Physical exam (Primary Care) Vital Signs: Last Vital Signs Temp 97.6 F 07/09/25 09:17 Pulse 56 07/09/25 09:17 Resp 16 07/09/25 09:17 BP 163/77 H 07/09/25 09:17 Pulse Ox 96 07/09/25 09:17 Oxygen Delivery Method Room Air 07/09/25 09:17 BMI result Body Mass Index 26.6 Tobacco/Smoking Status: Tobacco use Status Tobacco use date assessed 07/09/25 07/09/25 09:06 Patient Tobacco Use Status Never used Tobacco 07/09/25 09:04 e-Cigarette/Vaping Use Never Used 07/09/25 09:04 PHQ-9: PHQ-9 Score PHQ-9: Total score 2 07/09/25 09:21 Depression Screening Interpretation: Negative Thrive Assessment: Date of Thrive Assessment Date Thrive assessed 11/18/24 07/09/25 09:04 Currently or been in a relationship where the following occur: No concerns reported Const Other: General: no acute distress and well developed Nutritional Appearance: well nourished Orientation/consciousness: patient oriented x3 HENMT Head: Yes normocephalic and Yes atraumatic Eyes General: appearance normal, both eyes and all related structures Pupils: Equal, round and reactive pupils present EOM: EOMs intact bilaterally Resp Effort & Inspection: normal respiratory effort Auscultation: clear to auscultation bilaterally Cardio Rate: regular rate Rhythm: regular rhythm Heart sounds: S1 normal heart sound present, S2 normal heart sound present, no gallops, no murmurs and no rubs GI Palpation (GI): No Abdominal aortic bruit present, Soft to palpation, nontender, No hepatosplenomegaly present and No Rebound tenderness present Auscultation: normal bowel sounds General: Yes no CVA tenderness Back/Spine/Pelvis Back: no CVA tenderness Cervical Spine: cervical ROM normal and No Cervical spine tenderness Thoracic/Lumbar Spine: thoraco-lumbar ROM normal, No pain with thoraco-lumbar ROM, No thoracic spinal tenderness and No lumbar spinal tenderness Extrem General: Yes normal to inspection, No edema and No calf tenderness Skin General: warm and dry. Normal skin color. Normal skin turgor Neuro General: patient oriented x3, gait normal and no focal neuro deficit Cranial nerves: Yes Equal, round and reactive pupils present Cognition (Neuro): normal cognition Gait exam (Neuro): Normal gait present Sensory Exam: No Sensory deficit (Neuro) Psych Appearance: grossly normal Affect: normal affect Attitude: cooperative Thought process: Normal thought process present Coding Level of Care Code Est Pt Level 4 (21251) Diagnoses High blood pressure I10 Anxiety F41.9 Additional Codes PRERNA-7 Assessment Billing - PRERNA-7 Assessment Tool: PRERNA-7 Assessment 65776 ([id number]) PHQ-9 - 53598 - PHQ-9 Billing: Yes ([id number]) Assessment & Plan Assessment & Plan (1) High blood pressure: Code(s): I10 - Essential (primary) hypertension Category: Medical Plan: Resting blood pressure is 140/70, above goal of less than 130/80. Anxiety may also be a contributory factor. Clonidine discontinued at this time. Losartan increased to 75 mg daily; advised to take as prescribed. Continue current treatment regimen. Monitor blood pressure 2 to 3 times weekly, record readings, and bring to next appointment. Follow-up in 1 month or sooner with symptoms or concerns. Verbalized understanding and agreed with the treatment plan. (2) Anxiety: Code(s): F41.9 - Anxiety disorder, unspecified Category: Medical Plan: He took clonidine for a couple of days but felt dizzy and lightheaded and therefore stopped the medication. He was on Lorazepam 0.5mg PRN without adverse reactions. His anxiety has not improved since last visit; he notes that some days are worse than orders. He has upcoming procedures with his safety representative which is very anxious above. PRERNA-7 score revealed mild anxiety. PHQ-9 score is normal. Clonidine discontinued. Lorazepam 0.5 mg daily as needed ordered; advised to take as prescribed. Instructed on the risks, benefits, and potential adverse reactions of the medication. Follow-up in 1 month or sooner with worsening or new symptoms. Verbalized understanding and agreed with the plan. Medications: New losartan Take with losartan 50 mg to equal 75 mg daily 25 mg PO DAILY 30 tabs 3RF 30 days NS losartan 25 mg PO DAILY 30 days 30 tabs 3RF lorazepam 0.5 mg PO DAILY PRN 14 tabs 0RF anxiety Discontinued clonidine HCl Discontinued Reason: Doctor's Order 0.1 mg PO BID 30 days 60 tabs 1RF
[2025-07-09 09:17] VITALS: BP 163/77; PULSE 56; RESP 16; TEMP 36.4; O2SAT 96; BMI 26.6
[2025-07-09 09:39] VITALS: BP 148/70; PULSE 64
--- OUTSIDE RECORDS SUMMARY | 2025-07-09 09:41 | XMS_ITS | Continuity of Care Document ---
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 Care Team Information Rece iver [phone] Problems Active Problems Provider Date Essential hypertension [...] as needed 60tabs Paulo Griffith M.D. 08/23/[id number] Rajesh Griffith M.D. 06/09/2022 Losartan Ffuwccrcm37uc Tablets 1 by mouth every day Unknown Amlodipine Sefuwccw50vc Tablets 1 by mouth every day 90tabs Unknown Metoprolol Vfchlfyk86py Tablets 1 tab by mouth twice a day Unknown Ykxllah31iw Tablets 1 by mouth every day Unknown Rosuvastatin Etlxctb70iu Tablets 1 by mouth every day 90tabs Unknown Gwlapslugc46yw Capsules DR Take 1 Capsule By Mouth Daily 90caps Paulo Griffith M.D. Lorazepam0.5mg Tablets Take 1 Tablet By Mouth bid as Needed For Anxiety 60tabs Paulo Griffith M.D. Tjzeuvltk91pi Tablets 1 by mouth every day 30tabs Michelle Bowser MD Vital Signs Date Vital Result Comment 08/23/2023 9:53am BP Systolic 130 mmHg BP Diastolic 60 mmHg Heart Rate 67 /min Height 68 inches 5'8 Weight 185.12 lb BMI (Body Mass Index) 28.1 kg/m2 Results Test Acquired Date Facility Test Result H/L Range Note Comprehensive Metabolic Panl 07/06/2023 [facility] Glucose 99 mg/dL (70-99) [...] 85 ML/MIN/1.73 M2 1 Urinalysis Complete 07/06/2023 [facility] Appear/Color LIGHT YELLOW 2 SP. [place] 1.021 (1.002-1 .030) Urine PH 6.0 (5.0-8.0 ) Urine Albumin NEGATIVE (Neg) Urine Glucose NEGATIVE (Neg) Urine Ketones NEGATIVE (Neg) Urine Bilirubin NEGATIVE (Neg) Urine Hemoglobin NEGATIVE (Neg) Urine Nitrite NEGATIVE (Neg) Urine Leukocyte NEGATIVE (Neg) Urobilinogen NORMAL mg/dL (Norm) Urine WBCs <1 /HPF (0-5) Urine RBCs 1 /HPF (0-3) Mucus SLIGHT /LPF Complete Abc With Diff 07/06/2023 [facility] WBC 8.0 K/MM3 (4.0-11. [...] ) Lymph # 1.5 K/MM3 (0.8-3.1 ) [place]# 0.8 K/MM3 (0.4-1.3 ) Eo # 0.5 K/MM3 High (0.0-0.4 ) Baso # 0.1 K/MM3 (0.0-0.1 ) Abs. Imm Gran 0.0 K/MM3 Neut 65.6 % (44-76) Lymph 18.1 % (15-43) Monocyte 9.9 % (4.5-10. 5) Eo 5.6 % (0-6) Baso 0.6 % (0-2) Imm Gran 0.2 % Complete Abc With Diff 06/04/2022 [facility] WBC 10.0 K/MM3 (4.0-11. [...] ) Lymph # 1.7 K/MM3 (0.8-3.1 ) [place]# 0.8 K/MM3 (0.4-1.3 ) Eo # 0.4 K/MM3 (0.0-0.4 ) Baso # 0.1 K/MM3 (0.0-0.1 ) Abs. Imm Gran 0.0 K/MM3 Neut 69.7 % (44-76) Lymph 16.7 % (15-43) Monocyte 8.4 % (4.5-10. 5) Eo 4.2 % (0-6) Baso 0.7 % (0-2) Imm Gran 0.3 % Urine Dipstick 06/04/2022 [facility] Appear/Color LIGHT YELLOW 3 SP. [place] 1.010 (1.002-1 .030) Urine PH 6.0 (5.0-8.0 ) Urine Albumin NEGATIVE (Neg) Urine Glucose NEGATIVE (Neg) Urine Ketones NEGATIVE (Neg) Urobilinogen NORMAL mg/dL (Norm) Urine Bilirubin NEGATIVE (Neg) Urine Hemoglobin NEGATIVE (Neg) Urine Nitrite NEGATIVE (Neg) Urine Leukocyte NEGATIVE (Neg) Clarity CLEAR (Clear) Comprehensive Metabolic Panl 06/04/2022 [facility] Glucose 86 mg/dL (70-99) [...]
--- OUTSIDE RECORDS SUMMARY | 2025-07-09 09:41 | XMS_ITS | Clinical Summary ---
Author Organization [facility] Address [address] [place] [id number] Phone Care Team Providers Care Top Executive Name Role Phone Pcp, Unknown Primary Care [...] ENHANCE SUPPLEMENT MEDICARE PART A & B [facility] MEDICARE ENHANCE SUPPLEMENT MEDICARE PART A & B [facility] MEDICARE ENHANCE SUPPLEMENT MEDICARE PART A & B [facility] MEDICARE ENHANCE SUPPLEMENT MEDICARE PART A & B [facility] MEDICARE ENHANCE SUPPLEMENT MEDICARE PART A & B [facility] MEDICARE ENHANCE SUPPLEMENT MEDICARE PART A & B [facility] MEDICARE ENHANCE SUPPLEMENT MEDICARE PART A & B [facility] MEDIC[facility] ENHANCE SUPPLEMENT Care Teams Top Executive Relationship Specialty Start Date End Date Pcp, Unknown PCP - General 01/21/21 Additional Source Comments The information contained in this document represents components of the legal health record. It is not the complete legal health record.[facility]
== END 2025-07-09 09:51 | disposition home or self-care (01) ==
LOC: HO.HMCFM 09:02
PROVIDERS: PCP Nurse Practitioner Family; Visit Provider Nurse Practitioner Family
DX: I10 Essential (primary) hypertension (principal); F41.9 Anxiety disorder, unspecified

== ENCOUNTER → 2025-07-09 09:02 | Outpatient (BNVA) | payer MEDICARE, OTHER, SELFPAY | PROVIDERS: PCP Nurse Practitioner Family; Visit Provider Nurse Practitioner Family | DX: I10 Essential (primary) hypertension (principal); F41.9 Anxiety disorder, unspecified; Z79.899 Other long term (current) drug therapy | CPT/HCPCS: 96127; 99212 ==

== ENCOUNTER 2025-08-12 10:31 | Outpatient (AMB) | payer MEDICARE, OTHER, SELFPAY ==
--- NOTE | 2025-08-12 10:34 | A.OFFPC_ITS ---
Vital Signs 08/12/25 10:38 08/12/25 10:59 Height 5 ft 8 in Weight 179 lb BMI 27.2 BP 159/73 H 148/70 H Blood Pressure Location Rt brachial Rt brachial Position Sitting Sitting Respiration 16 Pulse 55 Pulse Source Palpation Temp 97.4 F Temp Source Oral Pulse Oximetry (%) 98 Oxygen Delivery Method Room Air Intake Visit Reasons: 1 mos HTN, anxiety Intake Note: patiet here for 1month follow up on HTN and anxiety [employer] Required: No Allergies No Known Allergies Allergy (Verified 08/12/25 10:57) Medication List - Last Reconciled 08/12/25 by Mindy Murray CNP amlodipine 10 mg PO DAILY aspirin 81 mg PO DAILY ezetimibe-rosuvastatin 10-10 mg 1 tab PO DAILY lorazepam 0.5 mg PO DAILY PRN losartan 25 mg PO DAILY 30 days NS losartan 50 mg PO DAILY metoprolol succinate ER 25 mg PO BID rivaroxaban 20 mg PO DAILY rosuvastatin 40 mg PO DAILY Tobacco use date assessed: 08/12/25 Fall risk assessment: No Falls in past year Last assessed Fall Risk: 08/12/25 Dental Screening Dental Screen Date: 08/12/25 Did you have a dental visit in the last 12 months?: Yes Did you have a dental problem in the last 6 months where you did not have access to dental care?: No Was dental information given to patient?: Patient has dentist HPI HPI Comments History of Present Illness Details 74-year-old male presents for hypertensi on and anxiety follow-up. He admits to taking his medications as prescribed without adverse reactions. He notes controlled anxiety symptoms. He has not taken Ativan since prescribed. He brought a BP log of some of his home blood pressure readings in the past 4 weeks. His BP was between 125-137/61-66 (sbp mostly below 130). He states that he is usually anxious at doctor's visits. He saw his commercial drafter last month and had an echocardiogram. Echocardiogram results reviewed in the office - no acute findings. He offers no complaints and denies acute symptoms at this time. [facility] Medical History (Updated 07/09/25 @ 09:45 by Mindy Murray CNP) Afib Anxiety Acid reflux Low back pain Arthritis Heart disease High cholesterol High blood pressure Inverted papilloma Surgical History (Updated 06/21/25 @ 09:02 by JUAREZ Naranjo) History of heart artery stent Family History (Updated 06/21/25 @ 09:04 by JUAREZ Naranjo) Father High blood pressure Cardiovascular disease Social History Housing: House Patient Tobacco Use Status: Never used Tobacco e-Cigarette/Vaping Use: Never Used Second Hand Smoke Exposure: No service: No Current occupational status: employed 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 1. Little interest or pleasure in doing things: not at all 2. Feeling down, depressed, or hopeless: not at all 3. Trouble falling or staying asleep, or sleeping too much: not at all 4. Feeling tired or having little energy: several days 5. Poor appetite or overeating: not at all 6. Feeling bad about yourself - or that you are a failure or have let yourself or your family down: not at all 7. Trouble concentrating on things, such as reading the newspaper or watching television: not at all 8. Moving or speaking so slowly that other people could have noticed. Or the opposite - being so fidgety or restless that you have been moving around a lot more than usual: not at all 9. Thoughts that you would be better off or of hurting yourself in some way: not at all Total score: 1 Depression Screening Interpretation: Negative Depression Screening Done: Yes 77426 - PHQ-9 Billing: Yes Source: Developed by Drs. Erasmo Spann, Olga Ramirez, Seun De La Paz and colleagues, with an educational don from [email or web address]. Thrive Questionnaire Date Thrive assessed: 11/18/24 I am a: Patient What is your living situation today?: I have a steady place to live Within the past 12 months, did the food you bought not last and you didn't have the money to get more?: Never true Within the past 12 months, did you worry whether your food would run out before you got money to buy more?: Never true Do you have trouble paying for medicines?: No Do you have trouble getting transportation to medical appointments?: No Do you have trouble paying your heating and electricity bill?: No Do you have trouble taking care of your child, family member or friend?: No Do you have trouble with day-to-day activities such as bathing, preparing meals, shopping, managing finances, etc.?: No Are you currently unemployed and looking for a job?: No Are you interested in more education?: No Please select the resources that you would like help with: None Currently or been in a relationship where the following occur: No concerns reported THRIVE Score: 0 PRERNA-7 AMB Questionnaire PRERNA-7 Date PRERNA - 7 assessed: 08/12/25 Feeling nervous, anxious, or on edge: 1 = Several days Not being able to stop or control worryin = Not at all Worrying too much about different things: 1 = Several days Trouble relaxin = Several days Being so restless that it is hard to sit still: 0 = Not at all Becoming easily annoyed or irritable: 0 = Not at all Feeling afraid as if something awful might happen: 0 = Not at all Total PRERNA-7 score (0-4 normal; 5-9 mild; 10-14 moderate; 15-21 severe): 3 Source: Developed by Drs. Erasmo Spann, Olga Ramirez, Seun De La Paz and colleagues, with an educational don from [email or web address]. PRERNA-7 Assessment Billing PRERNA-7 Assessment Tool: PRERNA-7 Assessment 65033 Review of Systems Const Details: Const Denies chills, Denies fatigue, Denies fever(s), Denies headache(s) and Denies weakness ENT Denies dizziness and Denies headache(s) Card Denies chest pain, Denies lightheadedness, Denies dyspnea and Denies other (Palpitations) Resp Denies cough, Denies dyspnea, Denies wheezing and Denies other ( shortness of breath) GI Denies abdominal pain, Denies melena, Denies hematochezia, Denies change in bowel habits, Denies dyspepsia and Denies nausea Denies hematuria and Denies dysuria Musc Denies abnormal gait, Denies myalgias, Denies arthralgias, Denies numbness and Denies tingling Skin/Breast Denies rash, Denies unusual bruising and Denies wounds Neuro Denies abnormal gait, Denies dizziness, Denies headache(s), Denies memory loss, Denies numbness, Denies Sensory deficit (Neuro), Denies tingling and Denies weakness Psych Reports anxiety, Denies depression, Denies memory loss Endo Denies cold intolerance, Denies fatigue, Denies heat intolerance, Denies polydipsia and Denies polyuria Aller/Immun Denies wheezing Physical exam (Primary Care) Vital Signs: Last Vital Signs Temp 97.4 F 08/12/25 10:38 Pulse 55 08/12/25 10:38 Resp 16 08/12/25 10:38 BP 159/73 H 08/12/25 10:38 Pulse Ox 98 08/12/25 10:38 Oxygen Delivery Method Room Air 08/12/25 10:38 BMI result Body Mass Index 27.2 Tobacco/Smoking Status: Tobacco use Status Tobacco use date assessed 08/12/25 08/12/25 10:38 Patient Tobacco Use Status Never used Tobacco 08/12/25 10:38 e-Cigarette/Vaping Use Never Used 08/12/25 10:38 PHQ-9: PHQ-9 Score PHQ-9: Total score 1 08/12/25 10:46 Depression Screening Interpretation: Negative Thrive Assessment: Date of Thrive Assessment Date Thrive assessed 11/18/24 08/12/25 10:38 Currently or been in a relationship where the following occur: No concerns reported Const Other: General: no acute distress and well developed Nutritional Appearance: well nourished Orientation/consciousness: patient oriented x3 HENMT Head: Yes normocephalic and Yes atraumatic Eyes General: appearance normal, both eyes and all related structures Pupils: Equal, round and reactive pupils present EOM: EOMs intact bilaterally Resp Effort & Inspection: normal respiratory effort Auscultation: clear to auscultation bilaterally Cardio Rate: regular rate Rhythm: regular rhythm Heart sounds: S1 normal heart sound present, S2 normal heart sound present, no gallops, no murmurs and no rubs Extrem General: Yes normal to inspection, No edema and No calf tenderness Skin General: warm and dry. Normal skin color. Normal skin turgor Neuro General: patient oriented x3, gait normal and no focal neuro deficit Cranial nerves: Yes Equal, round and reactive pupils present Cognition (Neuro): normal cognition Gait exam (Neuro): Normal gait present Sensory Exam: No Sensory deficit (Neuro) Psych Appearance: grossly normal Affect: normal affect Attitude: cooperative Thought process: Normal thought process present Coding Level of Care Code Est Pt Level 3 (62304) Diagnoses High blood pressure I10 Anxiety F41.9 Additional Codes PRERNA-7 Assessment Billing - PRERNA-7 Assessment Tool: PRERNA-7 Assessment 45760 ([id number]) PHQ-9 - 97370 - PHQ-9 Billing: Yes ([id number]) Assessment & Plan Assessment & Plan (1) High blood pressure: Code(s): I10 - Essential (primary) hypertension Category: Medical Plan: Resting blood pressure is 148/70, above goal of less than 130/80. He brought a BP log of some of his home blood pressure readings in the past 4 weeks. His BP was between 125-137/61-66 (sbp mostly below 130). He is usually anxious at doctor's visits. Therefore, anxiety may play a role. Continue current treatment regimen. Low-sodium diet encouraged. Encouraged to Ativan as prescribed (good to take before doctor's visits). Follow-up in 1 month or sooner with symptoms or concerns. Verbalized understanding and agreed with the plan. (2) Anxiety: Code(s): F41.9 - Anxiety disorder, unspecified Category: Medical Plan: He notes controlled anxiety symptoms. He has not taken Ativan since prescribed. PHQ-9 and PRERNA-7 scores are normal. Lorazepam as prescribed. Routine exercise encouraged. Follow-up with worsening or new symptoms. Verbalized understanding and agreed with the plan.
[2025-08-12 10:38] VITALS: BP 159/73; PULSE 55; RESP 16; TEMP 36.3; O2SAT 98; BMI 27.2
[2025-08-12 10:59] VITALS: BP 148/70
== END 2025-08-12 11:13 | disposition home or self-care (01) ==
LOC: HO.HMCFM 10:32
PROVIDERS: PCP Nurse Practitioner Family; Visit Provider Nurse Practitioner Family
DX: I10 Essential (primary) hypertension (principal); F41.9 Anxiety disorder, unspecified

== ENCOUNTER → 2025-08-12 10:31 | Outpatient (BNVA) | payer MEDICARE, OTHER, SELFPAY | PROVIDERS: PCP Nurse Practitioner Family; Visit Provider Nurse Practitioner Family | DX: I10 Essential (primary) hypertension (principal); F41.9 Anxiety disorder, unspecified | CPT/HCPCS: 96127; 99212 ==